=== PATIENT | female | born 1940 ===

== ENCOUNTER 2025-03-30 09:01 | Outpatient (CLI) | payer MEDICARE, BC, SELFPAY | END 2025-03-30 09:02 | disposition home or self-care (01) | LOC: WOUND 09:14 | PROVIDERS: Referring Provider Podiatrist; Visit Provider Nurse Practitioner Family | DX: L89.624 Pressure ulcer of left heel, stage 4 (principal); L89.224 Pressure ulcer of left hip, stage 4; L89.320 Pressure ulcer of left buttock, unstageable; G35 Multiple sclerosis; Z79.01 Long term (current) use of anticoagulants | CPT/HCPCS: 11042; 11045; G0463 ==

== ENCOUNTER 2025-04-06 12:43 | Outpatient (CLI) | payer MEDICARE, BC, SELFPAY | END 2025-04-06 12:44 | disposition home or self-care (01) | LOC: WOUND 12:44 | PROVIDERS: Visit Provider Nurse Practitioner Family | DX: L89.224 Pressure ulcer of left hip, stage 4 (principal); L89.220 Pressure ulcer of left hip, unstageable; L89.624 Pressure ulcer of left heel, stage 4; G35 Multiple sclerosis; Z79.01 Long term (current) use of anticoagulants | CPT/HCPCS: 11042 ==

== ENCOUNTER 2025-04-20 12:34 | Outpatient (CLI) | payer MEDICARE, BC, SELFPAY | END 2025-04-20 12:35 | disposition home or self-care (01) | LOC: WOUND 12:34 | PROVIDERS: Visit Provider Nurse Practitioner Family | DX: L89.224 Pressure ulcer of left hip, stage 4 (principal); L89.220 Pressure ulcer of left hip, unstageable; L89.624 Pressure ulcer of left heel, stage 4; G35.D Multiple sclerosis, unspecified; Z79.01 Long term (current) use of anticoagulants | CPT/HCPCS: 11042; 97605 ==

== ENCOUNTER 2025-04-27 12:28 | Outpatient (CLI) | payer MEDICARE, BC, SELFPAY | END 2025-04-27 12:29 | disposition home or self-care (01) | LOC: WOUND 12:29 | PROVIDERS: Visit Provider Nurse Practitioner Family | DX: L89.224 Pressure ulcer of left hip, stage 4 (principal); L89.220 Pressure ulcer of left hip, unstageable; G35.D Multiple sclerosis, unspecified; Z79.01 Long term (current) use of anticoagulants | CPT/HCPCS: 11042 ==